=== PATIENT | male | born 1970 | race Two or more races ===

== ENCOUNTER 2017-03-31 03:38 | Emergency (ER) | payer SELFPAY ==
[~2017-03-31] VITALS: Ht 177.8 cm; Wt 148.0 kg
[2017-03-31] MEDS ORDERED: METF10004 PO (03:50)
[2017-03-31] MEDS ORDERED: NS 1,000 ML IV SCH (04:14)
[2017-03-31] MEDS ORDERED: ONDANSETRON 4MG/2ML VIAL (J2405) IV ONE (04:15)
[2017-03-31] MEDS ORDERED: KETOROLAC 30 MG/ML VIAL (J1885) IV ONE (04:15)
[2017-03-31] MEDS: MORPHINE 4 MG/ML 1ML SYRINGE IV PRN ×2 (04:28→05:51)
[2017-03-31 04:38] LABS: BASO # 0.1 10^3/uL (0.0-0.2); BASO % 0.5 % (0.0-1.0); EOS # 0.1 10^3/uL (0.0-0.50); EOS % 0.5 % (0.0-3.0); IMMATURE GRANULOCYTE % 0.5 % (0-0); LYMPH # 2.1 10^3/uL (1.5-4.5); LYMPH % 18.8 % (24.0-44.0); MEAN CORPUSCULAR HEMOGLOBIN 31.1 pg (27.0-33.0); MEAN CORPUSCULAR HGB CONC 34.8 g/dl (32.0-36.5); MEAN CORPUSCULAR VOLUME 89.4 fl (80.0-96.0); MONO # 0.7 10^3/uL (0.0-0.8); MONO % 6.6 % (0.0-5.0); NEUTROPHILS % 73.1 % (36.0-66.0); PLATELET COUNT, AUTOMATED 141 10^3/uL (150-450); RED CELL DISTRIBUTION WIDTH 13.2 % (11.5-14.5); WHITE BLOOD COUNT 10.9 10^3/uL (4.0-10.0)
[2017-03-31 05:08] LABS: ALBUMIN 3.7 GM/DL (3.2-5.2); ALBUMIN/GLOBULIN RATIO 1.03 (1.00-1.93); ALKALINE PHOSPHATASE 55 U/L (45-117); ALT/SGPT 35 U/L (12-78); ANION GAP 8 MEQ/L (8-16); AST/SGOT 27 U/L (15-37); BILIRUBIN,DIRECT 0.2 MG/DL (0.0-0.2); BILIRUBIN,TOTAL 0.8 MG/DL (0.2-1.0); BLOOD UREA NITROGEN 12 MG/DL (7-18); CALCIUM LEVEL 8.9 MG/DL (8.5-10.1); CARBON DIOXIDE LEVEL 28 MEQ/L (21-32); CHLORIDE LEVEL 101 MEQ/L (98-107); CREATININE FOR GFR 0.96 MG/DL (0.70-1.30); GLOMERULAR FILTRATION RATE > 60.0 (>60); GLUCOSE, FASTING 158 MG/DL (70-105); POTASSIUM SERUM 4.2 MEQ/L (3.5-5.1); SODIUM LEVEL 137 MEQ/L (136-145); TOTAL PROTEIN 7.3 GM/DL (6.4-8.2)
[2017-03-31 05:55] VITALS: BP 118/56
--- NOTE | 2017-03-31 06:10 | REPUSA ---
CLINICAL HISTORY: Right flank pain. TECHNIQUE: Multiple axial and coronal CT images were obtained through the abdomen and pelvis without administration of oral or IV contrast material. COMMENTS: The liver is moderately enlarged with decreased attenuation without mass or defect. There is no intra or extrahepatic biliary ductal dilatation. The spleen is normal. The gallbladder is within normal li mits. The pancreas is of normal contour and attenuation characteristics. There is no evidence of adre nal mass. 4.5 mm obstructing stone at the right ureterovesical junction. Mild right hydroureteronephrosis. Mild diffuse thickening of the gallbladder. Mild prostatomegaly. Mild diffuse thickening of the wall of the bladder. Prostatic calcifications. Fat containing inguinal hernias without incarceration. There is no evidence for appendicitis. There is no bowel wall thickening. No evidence for small or la rge bowel obstruction. There is no evidence of abdominal ascites or lymphadenopathy. There is no evidence of intrinsic or extrinsic bladder mass. There is no pelvic ascites or lymphadeno orion. Images of the lung bases show no evidence of pleural or parenchymal mass. There are no pleural effusi ons. The bony structures are free of lytic or blastic lesions. IMPRESSION: 4.5 mm obstructing stone at the right ureterovesical junction. Mild right hydroureteronephrosis. Mild diffuse thickening of the gallbladder. Mild prostatomegaly. Mild diffuse thickening of the wall of the bladder. Prostatic calcifications. Thank you for your kind referral of this patient.
[2017-03-31] MEDS ORDERED: NORCO 5/325MG TABLET (BULK FOR ED) PO ONE (07:00)
[2017-03-31] MEDS ORDERED: PERC5TAB12 PO (09:26)
== END 2017-03-31 07:13 | disposition home or self-care (01) ==
LOC: M ED 03:38
DX: N23 Unspecified renal colic (principal); E11.9 Type 2 diabetes mellitus without complications; N13.2 Hydronephrosis with renal and ureteral calculous obstruction; N40.1 Benign prostatic hyperplasia with lower urinary tract symptoms; Z79.84 Long term (current) use of oral hypoglycemic drugs
CPT/HCPCS: 36415; 74176; 80048; 80076; 81001; 83690; 85025; 93041; 96361; 96374; 96375; 99284; J1885; J2405

== ENCOUNTER → 2017-04-14 | Outpatient (REF) | payer SELFPAY ==
[~2017-04-14] MED LIST: METF10004 PO; PERC5TAB12 PO
== END ==
LOC: M SMT 16:47
PROVIDERS: ATTEND Nurse Practitioner Women's Health
DX: N13.2 Hydronephrosis with renal and ureteral calculous obstruction (principal)

== ENCOUNTER → 2019-02-07 | Outpatient (CLI) | payer SELFPAY ==
--- NOTE | 2019-02-07 19:45 | REP ---
REASON: Pain and trauma. PRIORS: None. FINDINGS: There is no acute fracture, dislocation, subluxation or joint effusion. Electronically Signed by Chepe Dc DO 02/08/2019 11:09 A
== END ==
LOC: M RAD 16:43
PROVIDERS: ATTEND Chiropractor
DX: M25.522 Pain in left elbow (principal); M25.422 Effusion, left elbow; W19.XXXA Unspecified fall, initial encounter; Y92.9 Unspecified place or not applicable